=== PATIENT | female | born 1970 | race Caucasian/White ===

== ENCOUNTER 2018-10-08 10:00 | Day surgery (SDC) | payer OTHER ==
[2018-10-06 16:46] VITALS: BMI 29.5
[2018-10-08] MEDS ORDERED: LIDOCAINE HCL/PF 2% SDV 5ML VIAL ONE (13:39)
[2018-10-08] MEDS ORDERED: PROPOFOL 20 ML ONE ×2 (13:39)
[2018-10-08] MEDS ORDERED: MIDAZOLAM HCL 2 MG/2 ML SINGLE DOSE VIAL ONE (13:39)
[2018-10-08] MEDS ORDERED: SUCCINYLCHOLINE CHLORIDE 200 MG/10 ML VIAL ONE (13:42)
[2018-10-08] MEDS ORDERED: oxyCODONE HCL 5 MG TABLET PO PRN (13:48)
[2018-10-08] MEDS ORDERED: ONDANSETRON 4 MG/2 ML VIAL IVPUSH PRN (13:48)
[2018-10-08] MEDS ORDERED: LACTATED RINGERS SOLUTION 1,000 ML IV SCH (14:00)
--- NOTE | 2018-10-08 14:03 | HP ---
History & Physical Update - History History: No Change - Physical Physical: No Change - Assessment Assessment: No Change - Plan Plan: No Change (Agree with H&P from 10/07/18)
--- NOTE | 2018-10-08 14:42 | OP ---
Operative Note - Note: Operative Date: 10/08/18 Pre-Operative Diagnosis: submucosal leiomyoma, abnormal uterine bleeding Operation: hysteroscopic myomectomy, suction D&C Findings: two posterior intracavitary uterine fibroids Post-Operative Diagnosis: Same as Pre-op Surgeon: Wendy Barnes Anesthesia: General (with LMA) Specimens Removed: submucosal fibroids, endometrial curettings Estimated Blood Loss (mls): 5 Drains, Volume Out (mls): 400 (NSS fluid defecit) Operative Report Dictated: Yes
[2018-10-08 16:43] VITALS: TEMP 97.4
[2018-10-08 17:26] VITALS: BP 102/58; PULSE 67
--- NOTE | 2018-10-08 22:03 | OP ---
DATE OF OPERATION: 10/08/2018 PREOPERATIVE DIAGNOSES: Abnormal uterine bleeding and submucosal uterine fibroid. POSTOPERATIVE DIAGNOSES: Abnormal uterine bleeding and submucosal uterine fibroid. PROCEDURE: Hysteroscopic resection of submucosal uterine fibroid, suction dilation and curettage. SURGEON: Wendy Barnes DO ANESTHESIA: General with LMA. COMPLICATIONS: None. SPECIMENS REMOVED: Submucosal uterine fibroid x2 and endometrial curettings. FINDINGS: Two posterior wall submucosal uterine fibroids. ESTIMATED BLOOD LOSS: 5 mL. DISPOSITION: Stable, to PACU. BRIEF HISTORY AND PROCEDURE: The patient is a 48-year-old female who had been seen in the office with complaints of abnormal uterine bleeding. Upon ultrasound examination, was found to have what appeared to be a submucosal uterine fibroid. The patient was then counseled on her options and elected to undergo resection of the fibroid. Consent to the procedure was signed in the office and she was admitted to [facility] on October 08, 2018, where consents were reconfirmed. She was taken back to the operating room and placed in the dorsal lithotomy position, given LMA anesthesia. A hard timeout was performed. A speculum was placed inside the vagina. The anterior lip of the cervix was grasped with a tenaculum and the cervix was dilated to accommodate the operative hysteroscope, which was advanced to the fundus of the uterus. Bilateral tubal ostia were appreciated. Two posterior submucosal uterine fibroids were appreciated, which were resected in several passes with the resectoscope device in the usual fashion. Polyp forceps and suction curettage were completed to remove all the detached tissue. One final look with the hysteroscope revealed no evidence of any intrauterine cavitary lesions. All lesions appeared to be removed completely. No evidence of uterine trauma or perforation was appreciated. All instruments were removed from the vagina. Sponge and instrument counts were reported to be correct. The patient tolerated the procedure well and is recovering in PACU after the procedure. WENDY BARNES DO /[id number]
--- NOTE | 2018-10-10 17:00 | PATH ---
Surgical Pathology Report Patient Name: RABIA PAYTON Med. Rec. #: [id number] /Age/Gender: 1970 (Age: 48) / F Account: [id number] Location: [facility] Taken: 10/08/2018 Received: 10/09/2018 Reported: 10/10/2018 Physicians: Wendy Barnes M.D. Specimen(s) Received ENDOMETRIAL CURETTINGS/FIBROIDS UTERINE Clinical History Submucosal uterine fibroid Final Diagnosis ENDOMETRIAL CURETTINGS, FIBROIDS UTERINE, HYSTEROSCOPIC MYOMECTOMY, SUCTION DILATION AND CURETTAGE: POLYPOID FRAGMENTS OF PROLIFERATIVE ENDOMETRIUM SUGGESTIVE OF ENDOMETRIAL POLYP AND BUNDLES OF SMOOTH MUSCLE CONSISTENT WITH SUBMUCOSAL LEIOMYOMA. Electronically Signed Eliana Ma M.D. Gross Description Received in formalin labeled "endometrial curetting/fibroids," is a 2.2 x 2.2 x 0.3 cm aggregate of dubon, polypoid to fragmented portions of soft tissue. The formalin is filtered and the specimen is entirely submitted in one cassette. /10/09/2018 [facility]10/09/2018
== END 2018-10-08 17:20 | disposition home or self-care (01) ==
LOC: JASU-SURG 10:00
PROVIDERS: ATTEND Obstetrics & Gynecology
PROC: 0UJD8ZZ Inspection of Uterus and Cervix, Via Natural or Artificial Opening Endoscopic (ICD-10-PCS; 2018-10-08)
PROC: 0UB98ZZ Excision of Uterus, Via Natural or Artificial Opening Endoscopic (ICD-10-PCS; principal; 2018-10-08 11:00)
PROC: 0UDB7ZX Extraction of Endometrium, Via Natural or Artificial Opening, Diagnostic (ICD-10-PCS; 2018-10-08 11:00)
DX: D25.0 Submucous leiomyoma of uterus (principal); N93.9 Abnormal uterine and vaginal bleeding, unspecified
CPT/HCPCS: 84703; 88305-TC; 94760

== ENCOUNTER 2019-04-20 21:58 | Emergency (ER) | payer OTHER ==
[2019-04-20 22:07] VITALS: BP 134/77; PULSE 68; TEMP 98.2; BMI 28.7
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
[2019-04-20] MEDS ORDERED: CYCLOBENZAPRINE HCL 10 MG TABLET (FP) PO ONE (22:20)
[2019-04-20] MEDS ORDERED: CYCLOBENZAPRINE HCL 10 MG TABLET (FP) ONE (22:21)
== END 2019-04-20 22:22 | disposition home or self-care (01) ==
LOC: JERFT 21:58
DX: S16.1XXA Strain of muscle, fascia and tendon at neck level, initial encounter (principal); V43.52XA Car driver injured in collision with other type car in traffic accident, initial encounter; Y92.414 Local residential or business street as the place of occurrence of the external cause; Y93.89 Activity, other specified; Y99.8 Other external cause status; I10 Essential (primary) hypertension; E11.9 Type 2 diabetes mellitus without complications; Z90.5 Acquired absence of kidney
CPT/HCPCS: 99281-25

== ENCOUNTER 2020-10-13 04:31 | Day surgery (SDC) | payer OTHER ==
[2020-10-11 11:09] VITALS: BMI 31.8
[2020-10-13] MEDS ORDERED: PHENAZOPYRIDINE HCL 100 MG TABLET (FP) PO ONE ×2 (06:25→07:00)
[2020-10-13] MEDS ORDERED: PHENAZOPYRIDINE HCL 100 MG TABLET (FP) ONE ×2 (06:53→06:57)
[2020-10-13] MEDS ORDERED: ceFAZolin SODIUM 1 GM VIAL ONE (06:54)
[2020-10-13] MEDS ORDERED: CEFAZOLIN 2 GM/D5W 2 GM/50 ML ML IVPB ONE (07:00)
[2020-10-13] MEDS ORDERED: BUPIVACAINE HCL 50 ML ONE (07:17)
[2020-10-13] MEDS ORDERED: BUPIVACAINE LIPOSOME/PF (EXPAREL) 266 MG/20 ML VIAL ONE (07:17)
[2020-10-13] MEDS ORDERED: MIDAZOLAM HCL 2 MG/2 ML SINGLE DOSE VIAL ONE ×3 (07:30→07:32)
[2020-10-13] MEDS ORDERED: LIDOCAINE HCL/PF 2% SDV 5ML VIAL ONE (07:31)
[2020-10-13] MEDS ORDERED: PROPOFOL 20 ML ONE (07:32)
[2020-10-13] MEDS ORDERED: ROCURONIUM BROMIDE 50 MG/5 ML SYRINGE ONE (07:32)
[2020-10-13] MEDS ORDERED: ceFAZolin SODIUM 1 GM VIAL IVPB ONE (08:05)
[2020-10-13] MEDS ORDERED: ACETAMINOPHEN INJECTION 100 ML IVPB ONE (08:34)
[2020-10-13] MEDS ORDERED: oxyCODONE HCL 5 MG TABLET PO PRN ×4 (09:41→10:46)
[2020-10-13] MEDS ORDERED: traMADol HCL 50 MG TABLET PO PRN (09:41)
[2020-10-13] MEDS ORDERED: ONDANSETRON 4 MG/2 ML VIAL IVPUSH PRN ×2 (09:41→10:46)
[2020-10-13] MEDS ORDERED: BISACODYL 5 MG TABLET.DR (FP) PO PRN (10:46)
[2020-10-13] MEDS ORDERED: SIMETHICONE 80 MG TAB.CHEW (FP) PO PRN (10:46)
[2020-10-13] MEDS ORDERED: DOCUSATE SODIUM 100 MG CAPSULE (FP) PO PRN (10:46)
[2020-10-13] MEDS ORDERED: ACETAMINOPHEN 325 MG TABLET (FP) PO SCH (12:35)
[2020-10-13] MEDS: LACTATED RINGERS SOLUTION 1,000 ML IV SCH ×2 (15:00→15:30)
[2020-10-13] MEDS: CEFAZOLIN 1 GM/D5W 1 GM/50 ML BAG IVPB SCH (16:20)
[2020-10-13] MEDS: ACETAMINOPHEN 500 MG TABLET (FP) PO SCH ×2 (17:10→22:47)
[2020-10-13 19:10] LABS: HEMOGLOBIN 9.8 GM/dL (10.7-15.3); MCH 23.5 pg (25.7-33.7); MCHC 30.5 g/dl (32.0-36.0); MEAN CELL VOLUME 77.2 fl (80-96); MEAN PLT VOLUME 9.2 fl (7.5-11.1); PLATELET COUNT 258 K/MM3 (134-434); RBC 4.15 M/mm3 (3.60-5.2); RDW 16.1 % (11.6-15.6)
[2020-10-13 19:32] LABS: CALCIUM 8.9 mg/dL (8.5-10.1)
[2020-10-13 19:33] LABS: BLOOD UREA NITROGEN 17.4 mg/dL (7-18)
[2020-10-13 19:36] LABS: CREATININE 1.4 mg/dL (0.55-1.3)
[2020-10-14] MEDS: LACTATED RINGERS SOLUTION 1,000 ML IV SCH (00:37)
[2020-10-14] MEDS: CEFAZOLIN 1 GM/D5W 1 GM/50 ML BAG IVPB SCH ×2 (00:44→08:50)
[2020-10-14] MEDS: ACETAMINOPHEN 500 MG TABLET (FP) PO SCH ×2 (04:30→11:41)
[2020-10-14 08:41] LABS: HEMATOCRIT 30.1 % (32.4-45.2); HEMOGLOBIN 9.6 GM/dL (10.7-15.3); MCH 24.3 pg (25.7-33.7); MEAN CELL VOLUME 75.9 fl (80-96); MEAN PLT VOLUME 8.9 fl (7.5-11.1); PLATELET COUNT 276 K/MM3 (134-434); RBC 3.96 M/mm3 (3.60-5.2); RDW 15.7 % (11.6-15.6); WHITE BLOOD COUNT 10.2 K/mm3 (4.0-10.0)
[2020-10-14] MEDS ORDERED: CEFAZOLIN 1 GM in DEXTROSE 5%-WATER - 1 GM/50 ML IVPB IVPB SCH (08:50)
[2020-10-14 08:53] LABS: BLOOD UREA NITROGEN 13.5 mg/dL (7-18); CALCIUM 9.3 mg/dL (8.5-10.1)
[2020-10-14 08:56] LABS: CREATININE 1.1 mg/dL (0.55-1.3)
[2020-10-14] MEDS ORDERED: DEXTROSE 5%-WATER - 50 ML IVPB ONE (09:11)
[2020-10-14] MEDS ORDERED: ceFAZolin SODIUM 1 GM VIAL ONE (09:11)
[2020-10-14] MEDS ORDERED: ENOXAPARIN NA (PORCINE) 40 MG/0.4 ML DISP.SYRIN SQ SCH (10:00)
[2020-10-14 15:36] VITALS: BP 128/78; PULSE 77; TEMP 98.5
== END 2020-10-14 17:48 | disposition home or self-care (01) ==
LOC: JASUSAT 04:31 → J6S 15:28 → JASUSAT 10-14 17:48
PROVIDERS: ATTEND Obstetrics & Gynecology
PROC: 8E0W4CZ Robotic Assisted Procedure of Trunk Region, Percutaneous Endoscopic Approach (ICD-10-PCS; 2020-10-13)
PROC: 0UB04ZZ Excision of Right Ovary, Percutaneous Endoscopic Approach (ICD-10-PCS; 2020-10-13)
PROC: 0UT9FZZ Resection of Uterus, Via Natural or Artificial Opening With Percutaneous Endoscopic Assistance (ICD-10-PCS; principal; 2020-10-13 07:30)
PROC: 0UT7FZZ Resection of Bilateral Fallopian Tubes, Via Natural or Artificial Opening With Percutaneous Endoscopic Assistance (ICD-10-PCS; 2020-10-13 07:30)
DX: D25.9 Leiomyoma of uterus, unspecified (principal); N92.0 Excessive and frequent menstruation with regular cycle
CPT/HCPCS: 36415; 80048; 81025; 85027; 88302-TC; 88304-TC; 88307-TC; 94760; J0131

== ENCOUNTER 2021-03-31 17:08 | Emergency (ER) | payer OTHER ==
[2021-03-31 17:18] VITALS: BP 119/81; PULSE 67; TEMP 98.1; BMI 31.8
[2021-03-31] MEDS ORDERED: FAMOTIDINE 20 MG/50 ML IVPB 20 MG/50 ML MG IVPB ONE (17:41)
[2021-03-31] MEDS ORDERED: NAPROXEN 500 MG TABLET PO ONE (18:14)
[2021-03-31] MEDS ORDERED: NAPROXEN 500 MG TABLET ONE (18:20)
== END 2021-03-31 19:01 | disposition home or self-care (01) ==
LOC: JERFT 17:08
DX: S83.91XA Sprain of unspecified site of right knee, initial encounter (principal); S83.92XA Sprain of unspecified site of left knee, initial encounter; W10.8XXA Fall (on) (from) other stairs and steps, initial encounter
CPT/HCPCS: 73562-TC-LT-FY; 73562-TC-RT-FY; 99284-25

== ENCOUNTER 2022-12-31 15:42 | Emergency (ER) | payer OTHER ==
[2022-12-31 15:51] VITALS: TEMP 98; BMI 33.0
[2022-12-31] MEDS ORDERED: KETOROLAC TROMETHAMINE 15 MG/ML VIAL IVPUSH ONE (16:21)
[2022-12-31] MEDS ORDERED: SODIUM CHLORIDE 0.9% 500 ML INFUS.BAG IV ONE ×2 (16:21→18:27)
[2022-12-31] MEDS ORDERED: ACETAMINOPHEN 1000 MG/100 ML BAG IVPB ONE (16:21)
[2022-12-31] MEDS ORDERED: KETOROLAC TROMETHAMINE 15 MG/ML VIAL ONE (16:52)
[2022-12-31] MEDS ORDERED: ACETAMINOPHEN INJECTION 100 ML IVPB ONE (16:52)
[2022-12-31 16:58] LABS: BASO % 0.8 % (0-2.0); EOS % 1.9 % (0-4.5); HEMATOCRIT 37.1 % (32.4-45.2); HEMOGLOBIN 11.8 GM/dL (10.7-15.3); LYMPH % 24.9 % (8-40); MCH 24.9 pg (25.7-33.7); MCHC 31.8 g/dl (32.0-36.0); MEAN CELL VOLUME 78.3 fl (80-96); MEAN PLT VOLUME 8.4 fl (7.5-11.1); MONO % 8.1 % (3.8-10.2); NEUT % 64.3 % (42.8-82.8); PLATELET COUNT 284 10^3/uL (134-434); RBC 4.73 M/mm3 (3.60-5.2); RDW 16.2 % (11.6-15.6); WHITE BLOOD COUNT 8.8 K/mm3 (4.0-10.0)
[2022-12-31 17:19] LABS: POTASSIUM 4.4 mmol/L (3.5-5.1)
[2022-12-31 17:20] LABS: CALCIUM 9.5 mg/dL (8.5-10.1)
[2022-12-31 17:21] LABS: BLOOD UREA NITROGEN 25.2 mg/dL (7-18)
[2022-12-31 17:24] LABS: CREATININE 1.1 mg/dL (0.55-1.3)
[2022-12-31 19:18] VITALS: BP 116/76; PULSE 70; RESP 18
== END 2022-12-31 19:18 | disposition home or self-care (01) ==
LOC: JERFT 15:42
PROC: 3E033NZ Introduction of Analgesics, Hypnotics, Sedatives into Peripheral Vein, Percutaneous Approach (ICD-10-PCS; principal; 2022-12-31)
PROC: 3E0333Z Introduction of Anti-inflammatory into Peripheral Vein, Percutaneous Approach (ICD-10-PCS; 2022-12-31)
DX: G43.909 Migraine, unspecified, not intractable, without status migrainosus (principal); R11.0 Nausea
CPT/HCPCS: 36415; 80048; 85025; 99284-25

== ENCOUNTER 2023-03-12 20:40 | Emergency (ER) | payer OTHER ==
[2023-03-12 20:48] VITALS: BP 120/75; PULSE 85; RESP 20; TEMP 98.9; BMI 33.6
== END 2023-03-12 23:08 | disposition home or self-care (01) ==
LOC: JERFT 20:40
DX: J03.90 Acute tonsillitis, unspecified (principal); R05.9 Cough, unspecified; Z20.822 Contact with and (suspected) exposure to COVID-19
CPT/HCPCS: 0241U-QW; 87070; 87651; 99283-25

== ENCOUNTER 2023-09-22 09:31 | Emergency (ER) | payer OTHER ==
[2023-09-22 09:44] VITALS: BP 122/76; PULSE 82; RESP 18; TEMP 99.5; BMI 34.5
[2023-09-22] MEDS ORDERED: KETOROLAC TROMETHAMINE 30 MG/1 ML VIAL ONE (09:56)
[2023-09-22] MEDS: KETOROLAC TROMETHAMINE 30 MG/1 ML VIAL IM ONE (09:59)
== END 2023-09-22 10:38 | disposition home or self-care (01) ==
LOC: JER 09:31 → JERFT 09:31
PROC: 3E0233Z Introduction of Anti-inflammatory into Muscle, Percutaneous Approach (ICD-10-PCS; principal; 2023-09-22)
DX: J02.0 Streptococcal pharyngitis (principal); R68.83 Chills (without fever)
CPT/HCPCS: 99284-25